=== PATIENT | female | born 2000 | race Caucasian/White ===

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

== ENCOUNTER 2021-12-31 18:07 | Emergency (ER) | payer MEDICAID ==
[~2021-12-31] VITALS: Ht 170.2 cm; Wt 116.6 kg
[2021-12-31 18:30] VITALS: BP 137/93
== END 2021-12-31 18:54 | disposition home or self-care (01) ==
LOC: ER 18:08
DX: S93.401A Sprain of unspecified ligament of right ankle, initial encounter (principal); M79.89 Other specified soft tissue disorders; X58.XXXA Exposure to other specified factors, initial encounter; Y93.89 Activity, other specified; Y92.89 Other specified places as the place of occurrence of the external cause; Y99.8 Other external cause status
CPT/HCPCS: 73610; 99284; A6449

== ENCOUNTER 2023-08-31 10:21 | Emergency (ER) | payer MEDICAID ==
[~2023-08-31] VITALS: Ht 167.6 cm; Wt 119.7 kg
[~2023-08-31 10:21] MED LIST changes: +BUSP15TA8 PO; +CLON0.1T2 PO; +HYDR-3686 PO; +NICO-687 TD; +PROP10TA10 PO; -TAM75C PO; +TRAZ-256 PO; -ketorolac trometh. 30mg/ml inj. IV ONE; -normal saline 1000ML IV soln IVB ONE; -oseltamivir phos 75mg capsule PO ONE
[2023-08-31 12:58] VITALS: BP 135/85; PULSE 78; RESP 17; TEMP 98; O2SAT 96
== END 2023-08-31 12:59 | disposition home or self-care (01) ==
LOC: ER 10:22
DX: M25.561 Pain in right knee (principal); F41.9 Anxiety disorder, unspecified; Z79.899 Other long term (current) drug therapy
CPT/HCPCS: 73564; 99283

== ENCOUNTER 2023-11-12 14:36 | Outpatient (CLI) | payer MEDICAID | END 2023-11-12 23:59 | disposition home or self-care (01) | LOC: MRI 14:36 | PROVIDERS: ATTEND Nurse Practitioner Primary Care | DX: G43.909 Migraine, unspecified, not intractable, without status migrainosus (principal) | CPT/HCPCS: 70551 ==

== ENCOUNTER 2024-02-18 22:29 | Emergency (ER) | payer MEDICAID ==
[~2024-02-18] VITALS: Ht 170.2 cm; Wt 113.6 kg
[2024-02-18 22:47] VITALS: BP 140/87; PULSE 104; RESP 17; TEMP 98.5; O2SAT 96
[2024-02-18] MEDS ORDERED: AZIT-164 PO (23:59)
== END 2024-02-19 00:07 | disposition home or self-care (01) ==
LOC: ER 22:30
DX: J22 Unspecified acute lower respiratory infection (principal); F41.9 Anxiety disorder, unspecified; Z79.899 Other long term (current) drug therapy
CPT/HCPCS: 99283

== ENCOUNTER 2024-11-29 22:52 | Emergency (ER) | payer MEDICAID ==
[~2024-11-29] VITALS: Ht 170.2 cm; Wt 117.3 kg
[2024-11-29 23:06] VITALS: BP 159/84; PULSE 70; RESP 16; O2SAT 96
--- NOTE | 2024-11-29 23:26 | Physician Documentation ---
History of Present Illness ~ Chief Complaint: Cold, cough & congestion Stated Complaint: EAR PAIN Time Seen by MD: 23:20 OK to notify your PCP?: Yes Primary Medical Doctor: None Source: patient Mode of Arrival: POV, EMS Exam Limitations: no limitations HPI 24-year-old female presenting to our emergency department for bilateral ear pain for the past week and a half as well as a sore throat and occasional dry cough. She was seen 4 days ago at [facility] and prescribed a decongestant without relief. She denies any fevers, discharge from ears, or productive cough. Medication Reconciliation Allergies: Coded Allergies: No Known Allergies (Unverified , 11/29/24) Scheduled Azithromycin (Zithromax), 1 TAB PO DAILY Buspirone HCl (Buspirone HCl), 1 TABLET PO TID Nicotine 21 MG Patch* (Habitrol 21 MG Patch*), 1 PATCH TD DAILY Propranolol Hcl* (Inderal*), 10 MG PO TID Trazodone HCl (Trazodone HCl), 1 TAB PO HS Scheduled PRN Clonidine HCl (Clonidine HCl), 1 TAB PO Q6H PRN for agitation Hydroxyzine Hcl* (Atarax*), 1 TAB PO Q6H PRN for anxiety Past Medical History Past Medical History: Anxiety Past Surgical History: noncontributory Alcohol Use: None Drug Use: none Lives with: Family Lives In: Home Occupation: student, child Review of Systems All Other Systems at this time: Reviewed and Negative Physical Exam Vital Signs: RN Vital Signs have been reviewed: Yes, Temperature: 97.1, Source: Temporal, Heart Rate: 70, Respiratory Rate: 16, BP: 159/84, Pulse Oximetry: 96, Weight: 117.300 Pulse Oximetry Reflects: adequate oxygenation Physical Exam General: Alert, no apparent distress. HEENT: PERRL, no injection, moist mucous membranes. Right TM bulging, no erythema. Left TM bulging with erythema. Erythema to posterior pharynx and exudates on tonsils. Neck: Full range of motion. Respiratory: Lungs clear auscultation bilaterally, no respiratory distress. Chest: No accessory muscle use. Cardiovascular: Regular rate and rhythm, no murmurs. Extremities: Normal range of motion, no deformity. Neurologic: Oriented x4. Psychiatric: Normal mood and affect. Skin: Normal color, warm and dry. No edema, no ecchymosis. Progress Results/Orders Reviewed/noted all lab results: Yes Results/Orders Orders - BEVERLY GOODMAN Azithromycin Tablet (Zithromax Tablet) (11/29/24 23:30) Vital Signs 11/29/24 23:06 Temp 97.1 Pulse 70 Resp 16 B/P (MAP) 159/84 Pulse Ox 96 Medical Decision Making Findings Nadia is a 24-year-old female with a sore throat and bilateral ear pain x 1.5 weeks. She was seen by another hospital 4 days ago and given a decongestant with no relief. Physical exam shows otitis media in left ear and effusion to right ear lives white exudates on her tonsils with erythema to the posterior pharynx. Using shared decision-making, we opted to forego the rapid strep test and I will be prescribing a Z-Dusty 250 mg with the 1st dose given tonight. Patient agrees with plan. She should use Tylenol and/or ibuprofen for pain relief. She is to follow up with her primary care provider in the next 3 days. She should increase her water intake. And return back here for any new or worsening symptoms. Differential Dx:Considerations: Include: Influenza, Peritonsillar abscess, Pharyngitis-Diphtheria, Pneumonia, Sinusitis, URI Departure Disposition: HOME / SELF CARE / HOMELESS Impression: Primary Impression: Otitis media Additional Impression: Acute pharyngitis Condition: Stable Discharge Instructions: Otitis Media, Adult, [id number], Pharyngitis, [id number] Additional Instructions: Have given you the 1st dose of your azithromycin tonight. Please start your prescription tomorrow 11/30/2024. Take all antibiotics as prescribed. Please increase fluid intake. Return back here for any new or worsening symptoms. Follow up with her primary care provider in the next 3 days. Referrals: NO PRIMARY CARE PROVIDER (PCP) Prescriptions Azithromycin (Zithromax) 250 Mg Tablet 1 TAB PO DAILY for 4 Days, #4 TAB Prov: BEVERLY GOODMAN 11/29/24 Education Educated: Patient Educated regarding: diagnosis, treatment, prognosis, need for follow up Signature Scribe Signature: . Attestation: Scribed for Beverly Goodman by Beverly Goodman - INSULATION BOARD CALENDER OPERATOR . 11/29/24 23:56 BEVERLY GOODMAN [facility] November 29, 2024 23:26
[2024-11-29] MEDS ORDERED: AZIT250T PO (23:27)
[2024-11-29] MEDS: azithromycin 250mg tablet PO ONE (23:37)
[2024-11-29 23:42] VITALS: TEMP 97.1
== END 2024-11-29 23:43 | disposition home or self-care (01) ==
LOC: ER 22:53
DX: H66.93 Otitis media, unspecified, bilateral (principal); J02.9 Acute pharyngitis, unspecified; F41.9 Anxiety disorder, unspecified; Z79.899 Other long term (current) drug therapy
CPT/HCPCS: 99283